=== PATIENT | male | born 1955 | race Caucasian/White ===

== ENCOUNTER → 2021-03-29 | Outpatient (CLI) | payer MEDICARE | END | disposition home or self-care (01) | LOC: CVU 08:36 | PROVIDERS: ATTEND Internal Medicine Cardiovascular Disease | DX: I35.8 Other nonrheumatic aortic valve disorders (principal); I10 Essential (primary) hypertension; I48.91 Unspecified atrial fibrillation | CPT/HCPCS: 93306 ==

== ENCOUNTER 2021-04-07 06:14 | Day surgery (SDC) | payer MEDICARE, OTHER ==
[~2021-04-07] VITALS: Ht 188 cm; Wt 127.3 kg
[2021-04-07] MEDS ORDERED: RIVA20TA PO (06:50)
[2021-04-07] MEDS ORDERED: METH5TAB6 PO (06:50)
[2021-04-07] MEDS ORDERED: CHOL10003 PO (06:50)
[2021-04-07] MEDS ORDERED: ZINC220T2 PO (06:50)
[2021-04-07] MEDS ORDERED: METO-93 PO (06:50)
[2021-04-07] MEDS ORDERED: CETI10CA PO (06:50)
[2021-04-07] MEDS ORDERED: LOSA25TA25 PO (06:50)
[2021-04-07 06:55] VITALS: BP 159/103
[2021-04-07] MEDS ORDERED: SODIUM CHLORIDE 0.9% 1,000 ML IV SCH (07:00)
[2021-04-07 07:16] LABS: ANION GAP 3 mmol/L (5-15); CALCIUM 9.6 mg/dL (8.5-10.1); CHLORIDE 109 mmol/L (98-107); CREATININE 0.94 mg/dL (0.7-1.3)
[2021-04-07] MEDS ORDERED: PROPOFOL 10 MG/ML, 20ML ONE (09:55)
== END 2021-04-07 09:31 | disposition home or self-care (01) ==
LOC: CACL 06:14
PROVIDERS: ATTEND Internal Medicine Cardiovascular Disease
DX: I48.91 Unspecified atrial fibrillation (principal); I08.1 Rheumatic disorders of both mitral and tricuspid valves; I10 Essential (primary) hypertension; E05.90 Thyrotoxicosis, unspecified without thyrotoxic crisis or storm; E78.5 Hyperlipidemia, unspecified; F12.10 Cannabis abuse, uncomplicated; Z20.822 Contact with and (suspected) exposure to COVID-19; Z79.01 Long term (current) use of anticoagulants; Z79.899 Other long term (current) drug therapy
CPT/HCPCS: 36415; 80048; 87635; 92960; 93005; 93312; 93321; 93325; J2704

== ENCOUNTER 2021-08-02 12:24 | Day surgery (SDC) | payer MEDICARE, OTHER ==
[~2021-08-02] VITALS: Ht 188 cm; Wt 125.0 kg
[~2021-08-02 12:24] MED LIST: ACET325T26 PO; ASPI81TA45 PO; CETI10CA PO; CHOL10003 PO; LOSA25TA25 PO; METH5TAB6 PO; METO-93 PO; METO25TA91 PO; METO50TA82 PO; RIVA20TA PO; ZINC220T2 PO
[2021-08-02] MEDS ORDERED: METO-93 PO (13:37)
[2021-08-02 13:40] VITALS: BP 142/80
[2021-08-02] MEDS ORDERED: PROPOFOL 10 MG/ML, 20ML ONE ×2 (14:07)
== END 2021-08-02 15:01 | disposition home or self-care (01) ==
LOC: CACL 12:24
PROVIDERS: ATTEND Internal Medicine Cardiovascular Disease
DX: I48.91 Unspecified atrial fibrillation (principal); I35.8 Other nonrheumatic aortic valve disorders; I10 Essential (primary) hypertension; E78.5 Hyperlipidemia, unspecified; E05.90 Thyrotoxicosis, unspecified without thyrotoxic crisis or storm; Z79.01 Long term (current) use of anticoagulants; Z79.82 Long term (current) use of aspirin; Z79.899 Other long term (current) drug therapy
CPT/HCPCS: 93312; 93325; J2704